=== PATIENT | female | born 1985 | race Native Hawaiian/Other Pacific Islander ===

== ENCOUNTER 2018-05-01 16:37 | Emergency (ER) | payer OTHER, SELFPAY ==
[2018-05-01 16:41] VITALS: BP 116/66; PULSE 89; RESP 19; TEMP 37.1; O2SAT 100; BMI 38.2
--- NOTE | 2018-05-01 16:42 | ED.ABDPAIN ---
HPI - Abdominal Pain <JOCE Johnson - Last Filed: 05/01/18 22:22> General Chief Complaint: Abdominal Pain Stated Complaint: Ovary Torsion Time Seen by Provider: 05/01/18 16:42 Source: patient Mode of arrival: ambulatory Limitations: no limitations History of Present Illness HPI narrative: 33-year-old healthy female was sent here from emergency room on [facility] for further evaluation. She was seen there earlier today due to having pain into her right lower quadrant area that started yesterday. CT was obtained and shows possible cyst to ovarian area is however there was a concern for possible ovarian torsion. They did not have the ability to do a ultrasound so she was sent here for ultrasound. She denies any urinary symptoms. She denies any trauma to the area. Last bowel movement was earlier today and was normal. No fevers no chills. No vaginal discharge or bleeding. Laboratory work including CBC lipase and Chem panel were obtained earlier today at [facility] Emergency room and were unremarkable. Increased pain with palpation to the area. MD complaint: abdominal pain Related Data Previous Rx's Medication Instructions Recorded hydrocodone-acetaminophen [[place]] 1 tab PO Q4-6H PRN #10 tab 05/01/18 Review of Systems <JOCE Johnson - Last Filed: 05/01/18 22:22> Review of Systems Right lower quadrant pain Constitutional Denies chills, Denies fever(s), Denies lethargy and Denies weakness Eyes Denies change in vision, Denies eye discharge, Denies irritation and Denies loss of vision ENT Ears, Nose, Mouth, and Throat: Denies change in voice, Denies neck pain and Denies sore throat Cardiovascular Denies chest pain, Denies irregular heart rhythm, Denies lightheadedness, Denies palpitations, Denies dyspnea, Denies dyspnea on exertion and Denies orthopnea Respiratory Denies cough, Denies dyspnea, Denies dyspnea on exertion and Denies wheezing Gastrointestinal Gastrointestinal: Denies abdominal pain, Denies change in bowel habits, Denies diarrhea, Denies nausea and Denies vomiting Genitourinary Denies hematuria, Denies flank pain, Denies urinary incontinence and Denies urinary urgency Musculoskeletal Denies neck pain Integumentary/Breasts Denies pruritus, Denies erythema, Denies rash and Denies wounds Neurologic Denies confusion, Denies loss of vision and Denies weakness Psychiatric Denies anxiety, Denies confusion, Denies depression, Denies homicidal ideation and Denies suicidal ideation Endocrine Denies palpitations Hematologic/Lymphatic Denies easy bruising Allergic/Immunologic Denies wheezing Exam <JOCE Johnson - Last Filed: 05/01/18 22:22> Initial Vital Signs Initial Vital Signs: Vital Signs Temperature 98.7 F 05/01/18 16:41 Pulse Rate 89 05/01/18 16:41 Respiratory Rate 05/01/18 16:41 Blood Pressure 116/66 05/01/18 16:41 Pulse Oximetry 100 05/01/18 16:41 Const General: cooperative and well developed Nutritional Appearance: well nourished Orientation: alert, awake, oriented x3 and not confused HENMT Mouth: oral mucosae normal and moist mucous membranes Eyes Conjunctivae: conjunctivae normal Sclera: sclerae normal Pupils: PERRL EOM: EOM intact bilaterally Chest Chest: normal inspection of the chest Resp Effort & Inspection: normal respiratory effort, able to speak in complete sentences, no respiratory distress and no use of accessory muscles Auscultation: clear to auscultation bilaterally, no rales, no rhonchi and no wheezes Cardio Rate: regular rate Rhythm: regular rhythm Heart Sounds: no click, no gallops, no murmurs and no rubs Pulses: normal peripheral pulses GI Inspection: non-distended Palpation: soft, no hepatosplenomegaly, No guarding, No pulsatile mass and tender Auscultation: normal bowel sounds Other: Tenderness on palpation to bilateral lower abdominal area/pelvic area. General: No CVA tenderness Skin General: no rashes or lesions noted, No jaundice and No petechiae Neuro General: alert, oriented x3, gait normal and no focal motor deficits Speech: speech normal <Christo Barrera DO - Last Filed: 05/01/18 22:32> Initial Vital Signs Initial Vital Signs: Vital Signs Temperature 98.7 F 05/01/18 16:41 Pulse Rate 89 05/01/18 16:41 Respiratory Rate 05/01/18 16:41 Blood Pressure 116/66 05/01/18 16:41 Pulse Oximetry 100 05/01/18 16:41 Course <JOCE Johnson - Last Filed: 05/01/18 22:22> Orders Ordered: ED Orders 05/01/18 17:03 US pelvic complete Stat Vital Signs - 8 hr 05/01/18 16:41 05/01/18 18:00 05/01/18 19:58 Temperature 98.7 F Pulse Rate 89 86 80 Respiratory Rate 19 15 Blood Pressure 116/66 Blood Pressure [Left Arm] 98/56 L 112/66 Pulse Oximetry 100 99 98 05/01/18 20:07 Temperature Pulse Rate 88 Respiratory Rate 16 Blood Pressure 112/66 Blood Pressure [Left Arm] Pulse Oximetry 99 <Christo Barrera DO - Last Filed: 05/01/18 22:32> Orders Ordered: ED Orders 05/01/18 17:03 US pelvic complete Stat Vital Signs - 8 hr 05/01/18 16:41 05/01/18 18:00 05/01/18 19:58 Temperature 98.7 F Pulse Rate 89 86 80 Respiratory Rate 19 15 Blood Pressure 116/66 Blood Pressure [Left Arm] 98/56 L 112/66 Pulse Oximetry 100 99 98 05/01/18 20:07 Temperature Pulse Rate 88 Respiratory Rate 16 Blood Pressure 112/66 Blood Pressure [Left Arm] Pulse Oximetry 99 MDM - Abdominal Pain <JOCE Johnson - Last Filed: 05/01/18 22:22> MDM Narrative Medical decision making narrative: Laboratory results of from [facility] this morning were unremarkable. CT of the abdomen was obtained there and shows possible cyst to the ovarian areas and was concerned for ovarian torsion. Ultrasound was obtained here and was negative for ovarian torsion. There is a hemorrhagic cyst to her left ovary about 5.4 cm and a possible small cyst to her right ovary. [id number] ibuprofen as needed for discomfort. Follow up with primary care provider later this week for re-evaluation. Small amount of [place] is prescribed for breakthrough pain. For any worsening symptoms return to the emergency room. Discharge Plan Departure Patient Disposition: Home Clinical Impression: Left ovarian cyst Discharge Date/Time: 05/01/18 20:08 Interventions: ED Discharge Assessment Last Done: 05/01/18 20:07 Instructions: DI for Ovarian Cyst Activity Restrictions/Additional Instructions: Laboratory results today were unremarkable. Ultrasound of the pelvic area shows a cyst to the left ovarian area that is most likely causing her discomfort. There is a possible small cyst to the right ovarian area as well. There is good flow to both ovaries no torsion is indicated. Use [id number] ibuprofen as needed for any discomfort. Small amount of [place] is prescribed for breakthrough pain. Follow up with primary care provider later this week for re-evaluation. Recommend repeat ultrasound in approximately 6-8 weeks to ensure resolution. For any worsening symptoms return to the emergency room. Prescriptions: New hydrocodone-acetaminophen [[place]] 5-325 mg tablet 1 tab PO Q4-6H PRN (Reason: pain) Qty: 10 RF: 0 Referrals: [facility] [Provider Group] <Christo Barrera DO - Last Filed: 05/01/18 22:32> Cosign ED Attending Omar Attestation: I was available for consultation during this patient's emergency department encounter
--- NOTE | 2018-05-01 17:03 | DI.US.S_ITS ---
PROCEDURE: US PELVIC COMPLETE INDICATIONS: PAIN TECHNIQUE: Real-time scanning was performed of the pelvic organs, with image documentation. Additional endovaginal scanning was necessary due to incomplete visualization of the adnexal and endometrial structures by transabdominal scanning. COMPARISON: None available. FINDINGS: Transabdominal scanning: Limited scanning through the kidneys shows no hydronephrosis. No pathologic free abdominal or pelvic fluid. Endovaginal scanning: Uterus: Uterus is normal in size at 9.7 x 5.2 x 6.3 cm. The endometrium measures 1.4 cm in combined thickness. Ovaries: The right ovary measures 4.4 x 2.2 x 2.2 cm. There is an ovoid hypoechoic structure measuring approximately 1.8 x 1.8 x 1.5 cm with posterior acoustic enhancement. No internal vascularity on color Doppler interrogation. The left ovary measures 7.2 x 5.5 x 5.8 cm. There is an ovoid hypoechoic structure measuring 5.4 x 3.8 x 4.9 cm with internal septations suggestive of a hemorrhagic cyst. There is posterior acoustic enhancement. No internal vascularity on color Doppler interrogation. There is also a small simple left ovarian cyst measuring up to 2.5 cm. Patent arterial flow demonstrated in both ovaries. IMPRESSION: 1. Complex cyst demonstrated in the left ovary measuring up to 5.4 cm suggestive of a hemorrhagic cyst. Recommend followup in 6 weeks to demonstrate resolution. 2. Ovoid cystic structure in the right ovary may also represent a hemorrhagic cyst although the differential also includes an endometrioma. Recommend attention on followup. Dictated by: Dereje Samson M.D. on 05/01/2018 at 19:00 Approved by: Dereje Samson M.D. on 05/01/2018 at 19:04
[2018-05-01 18:00] VITALS: BP 98/56; PULSE 86; O2SAT 99
--- NOTE | 2018-05-01 19:56 | ED_ITS ---
HPI - Abdominal Pain <JOCE Johnson - Last Filed: 05/01/18 22:22> General Chief Complaint: Abdominal Pain Stated Complaint: Ovary Torsion Time Seen by Provider: 05/01/18 16:42 Source: patient Mode of arrival: ambulatory Limitations: no limitations History of Present Illness HPI narrative: 33-year-old healthy female was sent here from emergency room on [facility] for further evaluation. She was seen there earlier today due to having pain into her right lower quadrant area that started yesterday. CT was obtained and shows possible cyst to ovarian area is however there was a concern for possible ovarian torsion. They did not have the ability to do a ultrasound so she was sent here for ultrasound. She denies any urinary symptoms. She denies any trauma to the area. Last bowel movement was earlier today and was normal. No fevers no chills. No vaginal discharge or bleeding. Laboratory work including CBC lipase and Chem panel were obtained earlier today at [facility] Emergency room and were unremarkable. Increased pain with palpation to the area. MD complaint: abdominal pain Related Data Previous Rx's Medication Instructions Recorded hydrocodone-acetaminophen [[place]] 1 tab PO Q4-6H PRN #10 tab 05/01/18 Review of Systems <JOCE Johnson - Last Filed: 05/01/18 22:22> Review of Systems Right lower quadrant pain Constitutional Denies chills, Denies fever(s), Denies lethargy and Denies weakness Eyes Denies change in vision, Denies eye discharge, Denies irritation and Denies loss of vision ENT Ears, Nose, Mouth, and Throat: Denies change in voice, Denies neck pain and Denies sore throat Cardiovascular Denies chest pain, Denies irregular heart rhythm, Denies lightheadedness, Denies palpitations, Denies dyspnea, Denies dyspnea on exertion and Denies orthopnea Respiratory Denies cough, Denies dyspnea, Denies dyspnea on exertion and Denies wheezing Gastrointestinal Gastrointestinal: Denies abdominal pain, Denies change in bowel habits, Denies diarrhea, Denies nausea and Denies vomiting Genitourinary Denies hematuria, Denies flank pain, Denies urinary incontinence and Denies urinary urgency Musculoskeletal Denies neck pain Integumentary/Breasts Denies pruritus, Denies erythema, Denies rash and Denies wounds Neurologic Denies confusion, Denies loss of vision and Denies weakness Psychiatric Denies anxiety, Denies confusion, Denies depression, Denies homicidal ideation and Denies suicidal ideation Endocrine Denies palpitations Hematologic/Lymphatic Denies easy bruising Allergic/Immunologic Denies wheezing Exam <JOCE Johnson - Last Filed: 05/01/18 22:22> Initial Vital Signs Initial Vital Signs: Vital Signs Temperature 98.7 F 05/01/18 16:41 Pulse Rate 89 05/01/18 16:41 Respiratory Rate 05/01/18 16:41 Blood Pressure 116/66 05/01/18 16:41 Pulse Oximetry 100 05/01/18 16:41 Const General: cooperative and well developed Nutritional Appearance: well nourished Orientation: alert, awake, oriented x3 and not confused HENMT Mouth: oral mucosae normal and moist mucous membranes Eyes Conjunctivae: conjunctivae normal Sclera: sclerae normal Pupils: PERRL EOM: EOM intact bilaterally Chest Chest: normal inspection of the chest Resp Effort & Inspection: normal respiratory effort, able to speak in complete sentences, no respiratory distress and no use of accessory muscles Auscultation: clear to auscultation bilaterally, no rales, no rhonchi and no wheezes Cardio Rate: regular rate Rhythm: regular rhythm Heart Sounds: no click, no gallops, no murmurs and no rubs Pulses: normal peripheral pulses GI Inspection: non-distended Palpation: soft, no hepatosplenomegaly, No guarding, No pulsatile mass and tender Auscultation: normal bowel sounds Other: Tenderness on palpation to bilateral lower abdominal area/pelvic area. General: No CVA tenderness Skin General: no rashes or lesions noted, No jaundice and No petechiae Neuro General: alert, oriented x3, gait normal and no focal motor deficits Speech: speech normal <Christo Barrera DO - Last Filed: 05/01/18 22:32> Initial Vital Signs Initial Vital Signs: Vital Signs Temperature 98.7 F 05/01/18 16:41 Pulse Rate 89 05/01/18 16:41 Respiratory Rate 05/01/18 16:41 Blood Pressure 116/66 05/01/18 16:41 Pulse Oximetry 100 05/01/18 16:41 Course <JOCE Johnson - Last Filed: 05/01/18 22:22> Orders Ordered: ED Orders 05/01/18 17:03 US pelvic complete Stat Vital Signs - 8 hr 05/01/18 16:41 05/01/18 18:00 05/01/18 19:58 Temperature 98.7 F Pulse Rate 89 86 80 Respiratory Rate 19 15 Blood Pressure 116/66 Blood Pressure [Left Arm] 98/56 L 112/66 Pulse Oximetry 100 99 98 05/01/18 20:07 Temperature Pulse Rate 88 Respiratory Rate 16 Blood Pressure 112/66 Blood Pressure [Left Arm] Pulse Oximetry 99 <Christo Barrera DO - Last Filed: 05/01/18 22:32> Orders Ordered: ED Orders 05/01/18 17:03 US pelvic complete Stat Vital Signs - 8 hr 05/01/18 16:41 05/01/18 18:00 05/01/18 19:58 Temperature 98.7 F Pulse Rate 89 86 80 Respiratory Rate 19 15 Blood Pressure 116/66 Blood Pressure [Left Arm] 98/56 L 112/66 Pulse Oximetry 100 99 98 05/01/18 20:07 Temperature Pulse Rate 88 Respiratory Rate 16 Blood Pressure 112/66 Blood Pressure [Left Arm] Pulse Oximetry 99 MDM - Abdominal Pain <JOCE Johnson - Last Filed: 05/01/18 22:22> MDM Narrative Medical decision making narrative: Laboratory results of from [facility] this morning were unremarkable. CT of the abdomen was obtained there and shows possible cyst to the ovarian areas and was concerned for ovarian torsion. Ultrasound was obtained here and was negative for ovarian torsion. There is a hemorrhagic cyst to her left ovary about 5.4 cm and a possible small cyst to her right ovary. [id number] ibuprofen as needed for discomfort. Follow up with primary care provider later this week for re-evaluation. Small amount of Quil[place] is prescribed for breakthrough pain. For any worsening symptoms return to the emergency room. Discharge Plan Departure Patient Disposition: Home Clinical Impression: Left ovarian cyst Discharge Date/Time: 05/01/18 20:08 Interventions: ED Discharge Assessment Last Done: 05/01/18 20:07 Instructions: DI for Ovarian Cyst Activity Restrictions/Additional Instructions: Laboratory results today were unremarkable. Ultrasound of the pelvic area shows a cyst to the left ovarian area that is most likely causing her discomfort. There is a possible small cyst to the right ovarian area as well. There is good flow to both ovaries no torsion is indicated. Use [id number] ibuprofen as needed for any discomfort. Small amount of [place] is prescribed for breakthrough pain. Follow up with primary care provider later this week for re- evaluation. Recommend repeat ultrasound in approximately 6-8 weeks to ensure resolution. For any worsening symptoms return to the emergency room. Prescriptions: New hydrocodone-acetaminophen [[place]] 5-325 mg tablet 1 tab PO Q4-6H PRN (Reason: pain) Qty: 10 RF: 0 Referrals: [facility] [Provider Group] <Christo Barrera DO - Last Filed: 05/01/18 22:32> Cosign ED Attending Omar Attestation: I was available for consultation during this patient's emergency department encounter
[2018-05-01 19:58] VITALS: BP 112/66; PULSE 80; RESP 15; O2SAT 98
[2018-05-01 20:07] VITALS: BP 112/66; PULSE 88; RESP 16; O2SAT 99
== END 2018-05-01 20:08 | disposition home or self-care (01) ==
PROVIDERS: Emergency Provider Nurse Practitioner Family
DX: N83.202 Unspecified ovarian cyst, left side (principal)
CPT/HCPCS: 76830; 76856; 99282; 99283